=== PATIENT | female | born 1995 | race Caucasian/White ===

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

== ENCOUNTER 2017-04-14 14:10 | Emergency (ER) | payer OTHER ==
[2017-04-14 14:23] VITALS: RESP 18
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
[2017-04-14 17:12] VITALS: BP 133/90; PULSE 114; TEMP 97.5; O2SAT 96
== END 2017-04-14 17:41 | disposition home or self-care (01) ==
DX: S09.90XA Unspecified injury of head, initial encounter (principal); V11.4XXA Pedal cycle driver injured in collision with other pedal cycle in traffic accident, initial encounter; Y99.8 Other external cause status; Y93.55 Activity, bike riding